=== PATIENT | female | born 1950 | race African-American/Black ===

== ENCOUNTER 2021-09-19 20:34 | Inpatient (IN) | payer BC, MEDICARE ==
[~2021-09-19] VITALS: Ht 165.1 cm; Wt 77.1 kg
--- NOTE | 2021-09-19 21:07 | NUR ---
PT BIB CRISIS TEAM FOR PSYCH EVAL . PT WAS PLACED ON HOLD [address] FLORES PSYCHOLOGIST 09/19/211929. PER DR. FLORES'S ASSESSMENT PT IS " DELUSIONAL, CONFUSED, AND DIFFICULTY MAKING LOGICAL CONCLUSIONS/DECISIONS." PT TOLERATING R/A WELL WITH NO SOB. SAFETY 1:[address]
--- NOTE | 2021-09-19 21:54 | NUR ---
URINE COLLECTED AND SENT TO LAB
[2021-09-19 21:59] LABS: HEMOGLOBIN 14.3 g/dL (11.5-14.8)
[2021-09-19 22:04] LABS: BASOPHILS % (AUTO) 0.4 % (0.0-2.0); EOSINOPHILS % (AUTO) 0.9 % (0.0-6.0); HEMATOCRIT 44 % (33-45); LYMPHOCYTES % (AUTO) 18.7 % (20.0-44.0); MEAN CORPUSCULAR HGB CONC 33 g/dl (31.0-36.0); MEAN CORPUSCULAR VOLUME 86 fL (82-100); MONOCYTES # (AUTO) 0.7 K/uL (0.1-1.30); MONOCYTES % (AUTO) 6.4 % (2.0-12.0); NEUTROPHILS # (AUTO) 7.8 K/uL (1.8-8.9); NEUTROPHILS % (AUTO) 73.6 % (43.0-81.0); PLATELET COUNT (AUTO) 233 K/uL (150-450); RED BLOOD CELL COUNT(AUTO) 5.12 MIL/uL (4.0-5.2); WHITE BLOOD COUNT (AUTO) 10.6 K/uL (4.3-11.0)
--- NOTE | 2021-09-19 22:06 | NUR ---
COVID ANTIGEN SWAB COLLECTED AND SENT TO LAB
[2021-09-19 22:20] LABS: CALCIUM, SERUM 8.8 mg/dL (8.5-10.1); CARBON DIOXIDE 28 mmol/L (21-32); CHLORIDE 103 mmol/L (98-107); CREATININE 0.9 mg/dL (0.6-1.3); GLUCOSE 105 mg/dL (74-106); POTASSIUM 4.1 mmol/L (3.5-5.1); SODIUM SERUM 142 mmol/L (136-145); UREA NITROGEN, BLOOD 8 mg/dL (7-18)
[2021-09-19 22:26] LABS: ALANINE AMINOTRANSFERASE 22 U/L (12-78); ALBUMIN 3.5 g/dL (3.4-5.0); ALKALINE PHOSPHATASE 118 U/L (46-116); ASPARTATE AMINOTRANSFERASE 19 U/L (15-37); BILIRUBIN,TOTAL 0.4 mg/dL (0.2-1.0); TOTAL PROTEIN, SERUM 7.8 g/dL (6.4-8.2)
[2021-09-19 22:31] LABS: ACETAMINOPHEN 0 ug/ml (10-30); ALCOHOL, BLOOD < 3 mg/dL (0-0)
[2021-09-19 22:59] LABS: BILIRUBIN,URINE NEGATIVE (NEGATIVE); COLOR,URINE YELLOW (YELLOW); LEUKOCYTE ESTERASE ,URINE NEGATIVE (NEGATIVE); NITRITE, URINE NEGATIVE (NEGATIVE); PROTEIN,URINE NEGATIVE (NEGATIVE); UGLUCOSE NEGATIVE (NEGATIVE); UROBILINOGEN,URINE 0.2 EU/dL (0.2)
[2021-09-20 00:18] LABS: BILIRUBIN,DIRECT 0.1 mg/dL (0.0-0.2)
--- NOTE | 2021-09-20 00:30 | NUR ---
MRSA SWAB COLLECTED AND SENT TO LAB. PATIENT'S BELONGINGS LIST DONE.
--- NOTE | 2021-09-20 00:31 | NUR ---
REPORT GIVEN TO EL CORONA RN FOR LORE.
--- NOTE | 2021-09-20 00:45 | NUR ---
Note adwoa in ED - 09/20/21 at 0046 by CADEN PT TRANSFERRED TO [facility] V[facility] HOSPITAL PROTOCOL. PT AWAKE A/OX3. TOLERATING R/A WELL. ALL BELONGINGS GIVEN TO EL TRAMMELL.
--- NOTE | 2021-09-20 00:46 | NUR ---
PT TRANSFERRED TO [facility] V[facility] HOSPITAL PROTOCOL. PT AWAKE A/OX3. TOLERATING R/A WELL. ALL BELONGINGS GIVEN TO EL TRAMMELL.
[2021-09-20] MEDS ORDERED: TEMAZEPAM 7.5 MG CAPSULE PO PRN (01:00)
[2021-09-20] MEDS ORDERED: BLOOD SUGAR DIAGNOSTIC 1 EACH STRIP IN ONE (01:00)
[2021-09-20] MEDS ORDERED: clonazePAM 0.5 MG TABLET PO PRN (01:00)
[2021-09-20] MEDS ORDERED: MAG HYDROX/AL HYDROX/SIMETH 30 ML UDC PO PRN (01:00)
[2021-09-20] MEDS ORDERED: ACETAMINOPHEN 325 MG TABLET PO PRN (01:00)
[2021-09-20] MEDS ORDERED: ISOS30TA86 MT (01:20)
[2021-09-20] MEDS ORDERED: MUPI22OI7 TP (01:20)
[2021-09-20] MEDS ORDERED: METR-147 MT (01:20)
[2021-09-20] MEDS ORDERED: ASPI-1169 MT (01:20)
[2021-09-20 02:18] VITALS: BP 123/72
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
[2021-09-20 07:08] LABS: BACTERIA,URINE Few /HPF (None Seen); SQUAMOUS EPITHELIAL CELL,UR Moderate /HPF (None Seen); WBC,URINE 0-2 /HPF (0-3)
--- NOTE | 2021-09-20 07:39 | NUR ---
RN NOTES: PLACED CALL TO THE PATIENT"S SON AJ _ [phone] REGARDING ABOUT ADMISSION
[2021-09-20 08:00] VITALS: BP 156/76
[2021-09-20] MEDS ORDERED: OLANZAPINE 2.5 MG TABLET PO SCH ×2 (09:00→22:00)
[2021-09-20] MEDS: ISOSORBIDE MONONITRATE (30MG) 30 MG TAB.SR.24H PO SCH (09:45)
[2021-09-20] MEDS: ASPIRIN 81 MG TAB.CHEW PO SCH (09:45)
--- NOTE | 2021-09-20 10:34 | NUR ---
HIWOT Initial Discharge Plan: Patient currently resides at [address] [place] [address]; ([phone]). Patient would want to return back to [facility]. HIWOT will work with the MD and treatment team to coordinate appropriate treatment.
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
--- NOTE | 2021-09-20 11:56 | NUR ---
HIWOT Family Contact: HIWOT contacted patient's son Pedro Luis ([phone]) and son reported that she lives with pt. He stated that pt can get back on a train and return back home.
[2021-09-20 16:00] VITALS: BP 142/69
[2021-09-20] MEDS: OLANZAPINE 2.5 MG TABLET PO SCH (17:37)
[2021-09-20 20:00] VITALS: BP 148/74
[2021-09-21 07:22] LABS: CHOLESTEROL 177 mg/dL (<200); HDL CHOLESTEROL 60 mg/dL (40-60); LDL 106 mg/dL (0-99); TRIGLYCERIDES 51 mg/dL (30-150)
[2021-09-21 08:00] VITALS: BP 156/80
[2021-09-21] MEDS: ASPIRIN 81 MG TAB.CHEW PO SCH (08:08)
[2021-09-21] MEDS: OLANZAPINE 2.5 MG TABLET PO SCH (08:09)
[2021-09-21] MEDS: ISOSORBIDE MONONITRATE (30MG) 30 MG TAB.SR.24H PO SCH (08:09)
[2021-09-21 08:40] LABS: ALBUMIN 3.1 g/dL (3.4-5.0); BILIRUBIN,TOTAL 0.5 mg/dL (0.2-1.0); CALCIUM, SERUM 8.8 mg/dL (8.5-10.1); CREATININE 0.9 mg/dL (0.6-1.3); POTASSIUM 4.6 mmol/L (3.5-5.1); TOTAL PROTEIN, SERUM 6.8 g/dL (6.4-8.2)
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
--- NOTE | 2021-09-21 09:52 | NUR ---
APS: HIWOT contacted Sera case management director ([phone]) to discuss pt's case that pt wants to return back to [facility]. Sera stated that an APS worker will come to evaluate pt and that it is pending. Sera stated Sunday09/23/2021 is off and to contact the duty ([phone] intake #[id number].
[2021-09-21 16:00] VITALS: BP 141/69
[2021-09-21 20:00] VITALS: BP 125/70
[2021-09-21] MEDS: risperiDONE 1 MG TABLET PO SCH (21:11)
[2021-09-22 08:00] VITALS: BP 127/72
[2021-09-22] MEDS: OLANZAPINE 2.5 MG TABLET PO SCH ×2 (08:23→08:31)
[2021-09-22] MEDS: ASPIRIN 81 MG TAB.CHEW PO SCH (08:23)
[2021-09-22] MEDS: ISOSORBIDE MONONITRATE (30MG) 30 MG TAB.SR.24H PO SCH (08:24)
[2021-09-22] MEDS: risperiDONE 1 MG TABLET PO SCH ×2 (08:24→21:44)
[2021-09-22 16:00] VITALS: BP 100/63
--- NOTE | 2021-09-22 19:30 | NUR ---
[facility] RN NOTE, RECEIVED PATIENT AWAKE AND IN BED, NO S/S OR COMPLAINTS OF PAIN AT THIS TIME. PATIENT IS DISPLAYING NO S/S OF APPARENT DISTRESS AT THIS TIME. PATIENT BREATHING IS UNLABORED WITH EQUAL RISE AND FALL OF THE CHEST. PATIENT IS ALERT AND ORIENTED X 2 ON ROOM AIR WITH A SPO2 98%. PATIENT IS COMPLIANT WITH MEDICATIONS, CALM, POLITE, ISOLATIVE, AND COOPERATIVE. PATIENT DENIES SUICIDAL AND HOMICIDAL IDEATIONS AT THIS TIME. PATIENT ASSISTED WITH TURNING AND REPOSITIONING Q2HR AND PRN FOR COMFORT AND CIRCULATION. PATIENT HAS NO NEEDS AT THIS TIME. PATIENT EDUCATED ON THE USE OF THE CALL GOMEZ. PATIENT BED SIDE RAILS UP X 2 FOR SAFETY. PATIENT BED IS LOCKED, LOW, WITH BED ALARM ON. WILL CONTINUE TO MONITOR THIS PATIENT Q15 MINUTES WITH THE HELP OF STAFF TO MAINTAIN SAFETY.
[2021-09-22 20:00] VITALS: BP 135/78
[2021-09-23 08:00] VITALS: BP 114/62
[2021-09-23] MEDS: ASPIRIN 81 MG TAB.CHEW PO SCH (08:27)
[2021-09-23] MEDS: risperiDONE 1 MG TABLET PO SCH ×2 (08:27→21:52)
[2021-09-23] MEDS: ISOSORBIDE MONONITRATE (30MG) 30 MG TAB.SR.24H PO SCH (08:27)
--- NOTE | 2021-09-23 09:23 | NUR ---
APS: HIWOT contacted the duty of the day for APS ([phone]) intake #[id number] and he stated the APS family independence case manager will be Leslie Lechuga ([phone]) [facility]. HIWOT contacted Leslie and left a voicemail.
--- NOTE | 2021-09-23 12:17 | NUR ---
HIWOT Note: SW spoke with pt and stated if she would want a Nursing facility or an Assisted Living. Pt stated "No, I want to go back to [place], I live with my son". Pt does not want any other placement and wants to go back home.
[2021-09-23 16:00] VITALS: BP 115/61
[2021-09-23] MEDS: MAGNESIUM HYDROXIDE 30 ML UDC PO PRN (17:59)
[2021-09-23 20:29] VITALS: BP 122/55
[2021-09-24 08:00] VITALS: BP 117/67
[2021-09-24] MEDS: ASPIRIN 81 MG TAB.CHEW PO SCH (08:19)
[2021-09-24] MEDS: risperiDONE 1 MG TABLET PO SCH ×2 (08:20→21:27)
[2021-09-24] MEDS: ISOSORBIDE MONONITRATE (30MG) 30 MG TAB.SR.24H PO SCH (08:20)
[2021-09-24 16:00] VITALS: BP 103/60
[2021-09-24 20:15] VITALS: BP 101/52
[2021-09-25 08:00] VITALS: BP 115/66
[2021-09-25] MEDS: risperiDONE 1 MG TABLET PO SCH ×2 (08:49→21:51)
[2021-09-25] MEDS: ASPIRIN 81 MG TAB.CHEW PO SCH (08:49)
[2021-09-25] MEDS: ISOSORBIDE MONONITRATE (30MG) 30 MG TAB.SR.24H PO SCH (08:50)
[2021-09-25 16:00] VITALS: BP 107/53
[2021-09-25 20:00] VITALS: BP 112/60
[2021-09-26 08:00] VITALS: BP 115/53
[2021-09-26] MEDS: ASPIRIN 81 MG TAB.CHEW PO SCH (08:24)
[2021-09-26] MEDS: ISOSORBIDE MONONITRATE (30MG) 30 MG TAB.SR.24H PO SCH (08:24)
[2021-09-26] MEDS: risperiDONE 1 MG TABLET PO SCH ×2 (08:28→21:37)
--- NOTE | 2021-09-26 13:30 | NUR ---
Court Hearing: Patient's court hearing for 7190 was today and it was upheld for GD.
--- NOTE | 2021-09-26 13:33 | NUR ---
APS: Leslie Lechuga ([phone]) high risk case manager contacted this adjusto writer operator and stated would want to evaluate on 09/27. She left a voicemail to this adjusto writer operator. This adjusto writer operator left a voicemail that she many come evaluate the pt 09/27.
[2021-09-26 16:00] VITALS: BP 135/61
[2021-09-26 20:24] VITALS: BP 117/70
[2021-09-27] MEDS: ISOSORBIDE MONONITRATE (30MG) 30 MG TAB.SR.24H PO SCH (09:00)
--- NOTE | 2021-09-27 09:18 | NUR ---
APS: Leslie Lechuga ([phone]) contacted this policy writer sales and stated she would assess pt today.
--- NOTE | 2021-09-27 09:19 | NUR ---
WOUND CARE CONSULT: RECEIVED CONSULT FOR BREASTFOLD REDNESS. NO BREASTFOLD REDNESS NOTED. CURRENT YOMAIRA SCORE IS 22. WILL SEE PRN.
[2021-09-27] MEDS: ASPIRIN 81 MG TAB.CHEW PO SCH (09:45)
[2021-09-27] MEDS: risperiDONE 1 MG TABLET PO SCH ×2 (09:51→22:40)
[2021-09-27 11:21] VITALS: BP 103/54
[2021-09-27 18:57] VITALS: BP 143/62
[2021-09-27 20:00] VITALS: BP 124/81
[2021-09-28 08:00] VITALS: BP 136/62
[2021-09-28] MEDS: ISOSORBIDE MONONITRATE (30MG) 30 MG TAB.SR.24H PO SCH (08:15)
[2021-09-28] MEDS: risperiDONE 1 MG TABLET PO SCH ×2 (08:15→21:14)
[2021-09-28] MEDS: ASPIRIN 81 MG TAB.CHEW PO SCH (08:15)
--- NOTE | 2021-09-28 09:19 | NUR ---
APS: Leslie Lechuga ([phone]) contacted and left a voicemail if she will assess pt today because she did not assess on 09/27 as stated.
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
[2021-09-28 16:00] VITALS: BP 115/57
[2021-09-28 20:00] VITALS: BP 110/60
[2021-09-29 08:00] VITALS: BP 111/66
[2021-09-29] MEDS: ASPIRIN 81 MG TAB.CHEW PO SCH (08:06)
[2021-09-29] MEDS: ISOSORBIDE MONONITRATE (30MG) 30 MG TAB.SR.24H PO SCH (08:06)
[2021-09-29] MEDS: risperiDONE 1 MG TABLET PO SCH ×2 (08:06→21:03)
--- NOTE | 2021-09-29 10:03 | NUR ---
Individual Therapy: SW met with patient to conduct brief therapy. Patient appeared to be alert and oriented x3. She expressed that she is slowly improving and that her paranoia has been less. Patient expressed that she just wants to go back home to [facility] where she resides. She expressed her son lives in [place] and is minimally involved in her care. SW actively listened and provided emotional support.
[2021-09-29 16:00] VITALS: BP 112/66
[2021-09-29 20:00] VITALS: BP 111/52
[2021-09-30 08:00] VITALS: BP 137/70
[2021-09-30] MEDS: risperiDONE 1 MG TABLET PO SCH ×2 (08:04→21:12)
[2021-09-30] MEDS: ISOSORBIDE MONONITRATE (30MG) 30 MG TAB.SR.24H PO SCH (08:04)
[2021-09-30] MEDS: ASPIRIN 81 MG TAB.CHEW PO SCH (08:04)
[2021-09-30 16:00] VITALS: BP 110/65
[2021-09-30 19:23] VITALS: BP 113/57
[2021-10-01 08:00] VITALS: BP 129/72
[2021-10-01] MEDS: ASPIRIN 81 MG TAB.CHEW PO SCH (08:08)
[2021-10-01] MEDS: risperiDONE 1 MG TABLET PO SCH ×2 (08:09→21:14)
[2021-10-01] MEDS: ISOSORBIDE MONONITRATE (30MG) 30 MG TAB.SR.24H PO SCH (08:09)
[2021-10-01] MEDS: MAGNESIUM HYDROXIDE 30 ML UDC PO PRN (14:54)
[2021-10-01 16:00] VITALS: BP 104/64
--- NOTE | 2021-10-01 19:30 | NUR ---
[facility]PS RN NOTE, RECEIVED PATIENT AWAKE AND IN BED, NO S/S OR COMPLAINTS OF PAIN AT THIS TIME. PATIENT IS DISPLAYING NO S/S OF APPARENT DISTRESS AT THIS TIME. PATIENT BREATHING IS UNLABORED WITH EQUAL RISE AND FALL OF THE CHEST. PATIENT IS ALERT AND ORIENTED X 2 ON ROOM AIR WITH A SPO2 97%. PATIENT IS COMPLIANT WITH MEDICATIONS, CALM, POLITE, MAKES NEEDS KNOWN, ISOLATIVE, AND COOPERATIVE. PATIENT DENIES SUICIDAL AND HOMICIDAL IDEATIONS AT THIS TIME. PATIENT ASSISTED WITH TURNING AND REPOSITIONING Q2HR AND PRN FOR COMFORT AND CIRCULATION. PATIENT HAS NO NEEDS AT THIS TIME. PATIENT EDUCATED ON THE USE OF THE CALL GOMEZ. PATIENT BED SIDE RAILS UP X 2 FOR SAFETY. PATIENT BED IS LOCKED, LOW, WITH BED ALARM ON. WILL CONTINUE TO MONITOR THIS PATIENT Q15 MINUTES WITH THE HELP OF STAFF TO MAINTAIN SAFETY.
[2021-10-01 20:00] VITALS: BP 111/62
[2021-10-02 08:00] VITALS: BP 118/66
[2021-10-02] MEDS: ASPIRIN 81 MG TAB.CHEW PO SCH (09:08)
[2021-10-02] MEDS: ISOSORBIDE MONONITRATE (30MG) 30 MG TAB.SR.24H PO SCH (09:09)
[2021-10-02] MEDS: risperiDONE 1 MG TABLET PO SCH ×2 (09:10→21:16)
[2021-10-02 16:00] VITALS: BP 129/64
[2021-10-02 20:00] VITALS: BP 123/65
[2021-10-03 08:00] VITALS: BP 122/79
[2021-10-03] MEDS: ISOSORBIDE MONONITRATE (30MG) 30 MG TAB.SR.24H PO SCH (08:20)
[2021-10-03] MEDS: ASPIRIN 81 MG TAB.CHEW PO SCH (08:20)
[2021-10-03] MEDS: risperiDONE 1 MG TABLET PO SCH ×2 (08:21→21:10)
[2021-10-03 19:32] VITALS: BP 114/55
--- NOTE | 2021-10-04 07:04 | NUR ---
RN NOTE PATIENT SLEPT WELL AT NIGHT. NO BEHAVIOR EPISODE THROUGH OUT THE SHIFT NOTED. MED COMPLAINT. WILL ENDORSE TO AM RN FOR CONTINUITY OF CARE.
[2021-10-04 08:00] VITALS: BP 115/61
[2021-10-04] MEDS: ASPIRIN 81 MG TAB.CHEW PO SCH (09:22)
[2021-10-04] MEDS: risperiDONE 1 MG TABLET PO SCH ×2 (09:22→21:09)
[2021-10-04] MEDS: ISOSORBIDE MONONITRATE (30MG) 30 MG TAB.SR.24H PO SCH (09:23)
--- NOTE | 2021-10-04 09:27 | NUR ---
APS: Leslie Lechuga ([phone]) notified of patient's discharge back to [facility] on 10/07/21.
--- NOTE | 2021-10-04 09:29 | NUR ---
HIWOT Family Contact: HIWOT contacted patient's son Pedro Luis ([phone]) and left a detailed voicemail that pt will be discharged Sunday10/07/21 with shauna. Addendum: 10/04/21 at 1411 by HIWOT COSME correction mack
--- NOTE | 2021-10-04 14:00 | NUR ---
HIWOT Note: This keno writer / runner helped pt pay for her train station ticket through [employer] for Saturday 10/07 of amount $177.00 (pt paid). Reservation [id number]. Departing on 10/07 at 10PM and arriving 9:40PM Oct 09. HIWOT gave pt copy of receipt/ticket and also placed a copy in the chart.
--- NOTE | 2021-10-04 14:02 | NUR ---
Department of Mental Health: HIWOT spoke with Ashley ([phone]) and notified of pt's discharge for Sunday.
[2021-10-04 16:00] VITALS: BP 117/55
[2021-10-04 20:00] VITALS: BP 114/65
--- NOTE | 2021-10-05 06:25 | NUR ---
RN NOTE PATIENT SLEPT WELL AT NIGHT AND 8 HOURS OF SLEEP, NO BEHAVIOR EPISODE THROUGH OUT THE SHIFT NOTED. NO CHANGE OF CONDITION NOTE, MED COMPLAINT. WILL ENDORSE TO AM RN FOR CONTINUITY OF CARE.
[2021-10-05 07:16] LABS: CALCIUM, SERUM 8.9 mg/dL (8.5-10.1); POTASSIUM 4.5 mmol/L (3.5-5.1)
[2021-10-05 08:00] VITALS: BP 135/77
[2021-10-05] MEDS: ASPIRIN 81 MG TAB.CHEW PO SCH (09:24)
[2021-10-05] MEDS: risperiDONE 1 MG TABLET PO SCH ×2 (09:24→21:28)
[2021-10-05] MEDS: ISOSORBIDE MONONITRATE (30MG) 30 MG TAB.SR.24H PO SCH (09:25)
[2021-10-05] MEDS: MAGNESIUM HYDROXIDE 30 ML UDC PO PRN (09:39)
--- NOTE | 2021-10-05 09:39 | NUR ---
PT REQUESTED MILK OF MAGNESIA SHE FEELS CONSTIPATED. MOM GIVEN. WILL CONTINUE TO MONITOR.
[2021-10-05 16:00] VITALS: BP 114/58
[2021-10-05 20:00] VITALS: BP 112/62
[2021-10-05 20:43] VITALS: BP 112/62
[2021-10-06 08:00] VITALS: BP 127/76
[2021-10-06] MEDS: ISOSORBIDE MONONITRATE (30MG) 30 MG TAB.SR.24H PO SCH (08:26)
[2021-10-06] MEDS: ASPIRIN 81 MG TAB.CHEW PO SCH (08:26)
[2021-10-06] MEDS: risperiDONE 1 MG TABLET PO SCH ×2 (08:27→21:05)
[2021-10-06 16:00] VITALS: BP 105/59
[2021-10-06 20:00] VITALS: BP 148/75
[2021-10-07] MEDS: MAGNESIUM HYDROXIDE 30 ML UDC PO PRN (06:52)
--- NOTE | 2021-10-07 06:52 | NUR ---
[facility]PS RN NOTE, PATIENT HAS A COMPLAINT OF FEELING CONSTIPATED AND REQUESTING MILK OF MAGNESIA AT THIS TIME. PATIENT VITAL SIGNS ARE STABLE. GAVE MILK OF MAGNESIA 30 ML DOSE PO Q12HR PRN ORDERED. WILL REASSESS FOR CONSTIPATION AND I WILL CONTINUE TO MONITOR THIS PATIENT WITH THE HELP OF STAFF.
[2021-10-07 08:00] VITALS: BP 132/68
--- NOTE | 2021-10-07 08:18 | NUR ---
Rene HOTEL FRONT DESK CLERK gave an order to discharge pt. to home today. HOTEL FRONT DESK CLERK provided prescriptions.
--- NOTE | 2021-10-07 08:25 | NUR ---
Chemo Mcclain NP made aware of the admission and provided a prescriptions.
[2021-10-07 09:18] VITALS: BP 132/68
[2021-10-07] MEDS: ASPIRIN 81 MG TAB.CHEW PO SCH (09:18)
[2021-10-07] MEDS: risperiDONE 1 MG TABLET PO SCH (09:18)
[2021-10-07] MEDS: ISOSORBIDE MONONITRATE (30MG) 30 MG TAB.SR.24H PO SCH (09:18)
--- NOTE | 2021-10-07 10:01 | NUR ---
SW Discharge Note: Patient will be discharged back home located at [address] [place] [address]; ([phone]). Patient will order Lyft at 3PM to [facility] located at [address] [place] [address]. Patient has a Eticket for [employer] Res:[id number]. Departing at Oct 07, 2021 at 10PM and arriving Oct 09 at 9:40PM. Patients son Pedro Luis ([phone]) is notified of patients discharge. Patients Department of Health counseling case manager Ashley ([phone]) is notified of discharge. Patients APS counseling case manager Leslie Mitchellmabelsourav ([phone]) is notified of patients discharge. Patient is alert and oriented x4. Patient denies visual/auditory hallucinations. Patient denies suicidal or homicidal ideation. Patient was given resources for primary doctor: [facility]; ([phone]), Dr. Marie ([phone]), Dr. Kingston ([phone]). Patient was given resources for psychiatry: Dr. Ronquillo ([phone]), Dr Bailey ([phone]), Dr. Elke Mccabe ([phone]). Patient presents with euthymic mood and congruent affect.
--- NOTE | 2021-10-07 13:07 | NUR ---
GPS/RN PT DISCHARGED HOME WITH TRANSPORTATION ARRANGED BY HIWOT. PT WILL TAKE LYFT TO [employer].P TIS A/O X4 NO S/S OF SI/HI OR AVH REPORTED AT THE TIME OF DISCHARGE. PRESCRIPTIONS AND EXIT CARE INSTRUCTION PROVIDED. PT IS AMBULATORY NO DISTRESS . PROPERTY RETURNED. PT REFUSED PICTURES ON D/C.
== END 2021-10-07 13:15 | disposition home or self-care (01) | DRG 885 ==
LOC: ER 20:52 → GPS 09-20 00:19
PROVIDERS: ADMIT Nurse Practitioner Psychiatric/Mental Health; ATTEND Nurse Practitioner Family
DX: F25.9 Schizoaffective disorder, unspecified (principal); F29 Unspecified psychosis not due to a substance or known physiological condition; I10 Essential (primary) hypertension; Z91.041 Radiographic dye allergy status; Z73.6 Limitation of activities due to disability; R53.1 Weakness; R27.8 Other lack of coordination; Z91.81 History of falling; F41.9 Anxiety disorder, unspecified; Z91.14 Patient's other noncompliance with medication regimen; F32.A Depression, unspecified; I48.0 Paroxysmal atrial fibrillation; Z79.899 Other long term (current) drug therapy
CPT/HCPCS: 36415; 80048-TC; 80053-TC; 80061-TC; 80076-TC; 81001; 85025-TC; 87081-TC; 97116-TC; 97530-TC; C9803; G0480